=== PATIENT | male | born 1980 | race Caucasian/White ===

== ENCOUNTER 2017-07-21 17:36 | Emergency (ER) | payer BC ==
[2017-07-21 17:38] VITALS: BP 111/55; PULSE 90; RESP 16; TEMP 98.1; O2SAT 98
[2017-07-21] MEDS ORDERED: ZOLO100T PO (17:47)
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
[2017-07-21] MEDS ORDERED: ACETAMINOPHEN/HYDROcodone 325 MG/5 MG TAB PO ONE (18:30)
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
== END 2017-07-21 18:38 | disposition home or self-care (01) ==
LOC: PHEFT 17:36
DX: S52.591A Other fractures of lower end of right radius, initial encounter for closed fracture (principal); S52.611A Displaced fracture of right ulna styloid process, initial encounter for closed fracture; F32.9 Major depressive disorder, single episode, unspecified; W51.XXXA Accidental striking against or bumped into by another person, initial encounter; Z79.899 Other long term (current) drug therapy
CPT/HCPCS: 29125; 73110; 73120